=== PATIENT | female | born 1945 | race Caucasian/White ===

== ENCOUNTER → 2018-06-04 09:29 | Outpatient (CLI) | payer OTHER, MEDICARE, SELFPAY | PROVIDERS: PCP Family Medicine; Visit Provider Physician Assistant | DX: L02.91 Cutaneous abscess, unspecified (principal) | CPT/HCPCS: 87070; 87077; 87147; 87186; 87205 ==

== ENCOUNTER 2018-10-25 08:57 | Emergency (ER) | payer OTHER, SELFPAY ==
[2018-10-25] VITALS (11 sets, daily range): BP systolic 91–144; BP diastolic 52–77; PULSE 51–73; RESP 16–21; TEMP 36.8; O2SAT 98–100; BMI 20.5
--- NOTE | 2018-10-25 08:58 | ED.CHESTPAIN ---
HPI - Chest Pain General Chief Complaint: Chest Pain Stated Complaint: chest/shoulder/neck pain Time Seen by Provider: 10/25/18 08:58 Source: patient Mode of arrival: ambulatory Limitations: no limitations History of Present Illness HPI narrative: Patient is otherwise healthy 72-year-old female not on any medications no prior medical history here for evaluation of left-sided chest discomfort that she states has been off and on for the past several weeks. She states that the symptoms she has today for the same symptoms she has been having off and on. She states that the symptoms today have been going on for the past 2 hr. It is a tingling in the left side of her chest and in her left neck and down her left arm. She thinks that it potentially gets worse with movement and palpation but unsure. Feels that it gets better with taking a big deep breath. No skin rashes. Related Data Home Medications Medication Instructions Recorded Confirmed calcium carb-vit [id number] 1 tab PO DAILY 06/04/18 10/25/18 333 mg-200 unit-133 mg-5 mg tablet green tea leaf extract capsule 1 cap PO DAILY cap 06/04/18 10/25/18 melatonin 3 mg tablet 3 mg PO BEDTIME PRN 06/04/18 10/25/18 Co Q-10 (with Vit E) 1 cap PO DAILY 10/25/18 10/25/18 Fish Oil 1 cap PO DAILY 10/25/18 10/25/18 [place] Needle Extrace 1 dose PO DAILY 10/25/18 10/25/18 Shitake Mushroom Extract 1 dose PO DAILY 10/25/18 10/25/18 aspirin 650 mg PO .ONCE PRN 10/25/18 10/25/18 turmeric 1 cap PO DAILY 10/25/18 10/25/18 Allergies Allergy/AdvReac Type Severity Reaction Status Date / Time No Known Drug Allergies Allergy Verified 10/25/18 10:47 Review of Systems Constitutional Denies fever(s) and Denies headache(s) ENT Ears, Nose, Mouth, and Throat: Denies dizziness and Denies headache(s) Cardiovascular Reports chest pain, Denies rapid heart rate, Denies pedal edema, Denies edema, Denies lightheadedness, Reports radiating jaw, neck or arm pain, Denies palpitations and Denies dyspnea Respiratory Denies pain on inspiration, Denies pain with cough and Denies dyspnea Gastrointestinal Gastrointestinal: Denies abdominal pain, Denies nausea and Denies vomiting Genitourinary Denies dysuria Musculoskeletal Denies myalgias and Denies arthralgias Integumentary/Breasts Denies lesions and Denies rash Neurologic Denies dizziness and Denies headache(s) Endocrine Denies palpitations Hematologic/Lymphatic Comments: Not on anticoagulation Allergic/Immunologic Denies urticaria PFSH Medical History Chickenpox (Resolved ~1951) MRSA (methicillin resistant Staphylococcus aureus) (Resolved 05/2018) Measles (Resolved ~1949) Rheumatic fever (Resolved) Surgical History Hx of surgical procedure (Resolved 1983) Family History Father Hypertension Stroke Mother No problems noted. Social History Smoking Status: Never smoker alcohol intake: never Family History Father Hypertension Stroke Mother No problems noted. Social History Smoking Status: Never smoker alcohol intake: never Exam Initial Vital Signs Initial Vital Signs: Vital Signs Temperature 98.3 F 10/25/18 09:00 Pulse Rate 62 10/25/18 09:00 Respiratory Rate 20 10/25/18 09:00 Blood Pressure 144/76 H 10/25/18 09:00 Pulse Oximetry 99 10/25/18 09:00 Const General: cooperative, healthy appearing, comfortable, well developed, well groomed and No acute distress Orientation: alert, awake and oriented x3 HENMT Head: normal to inspection and normocephalic Resp Effort & Inspection: normal respiratory effort Auscultation: clear to auscultation bilaterally Cardio Rate: regular rate Rhythm: regular rhythm Pulses: radial pulses present GI Inspection: non-distended Palpation: soft and No tender Skin Lesions: no lesions Rashes: no rashes Neuro General: alert and oriented x3 Cognition: normal cognition Speech: speech normal Gait: normal gait Motor: muscle tone normal throughout Extrem General: normal to inspection, capillary refill normal and No edema Psych Appearance: grossly normal and well kempt Scores GCS [place] coma scale eye opening: Spontaneous Floyd coma scale verbal response: Orientated Liberty coma scale motor response: Obey commands Floyd coma scale total score: 15 HEART Score Heart Score history: Slightly Suspicious Heart Score EKG: Normal Heart Score Age: > or = 65 years old Heart Score risk factors: No known risk factors Heart Score troponin: < or = to normal limit Heart Score Total: 2 Course Orders Ordered: ED Orders 10/25/18 08:58 XR chest 1V Stat EKG-12 Lead Stat 10/25/18 09:15 Complete Blood Count AUTO DIFF Stat Comprehensive Metabolic Panel Stat Partial Thromboplastin Time Stat Prothrombin Time INR Stat Troponin I Stat 10/25/18 12:30 Troponin I Stat Nitroglycerin (Nitrostat) 0.4 mg SL [id number] PRN PRN Reason: Chest Pain Last Admin: 10/25/18 09:42 Dose: 0.4 mg Admin: 10/25/18 09:27 Dose: 0.4 mg Discontinued Medications Aspirin (Aspirin Chew) 324 mg PO NOW ONE Stop: 10/25/18 09:25 Last Admin: 10/25/18 09:26 Dose: 324 mg Vital Signs - 8 hr 10/25/18 09:00 10/25/18 09:27 10/25/18 09:36 Temperature 98.3 F Pulse Rate 62 63 57 L Respiratory Rate 20 Blood Pressure 144/76 H 125/77 109/57 L Blood Pressure [Left Arm] Pulse Oximetry 99 10/25/18 09:42 10/25/18 09:50 10/25/18 10:44 Temperature Pulse Rate 60 73 51 L Respiratory Rate 19 Blood Pressure 109/57 L 91/76 Blood Pressure [Left Arm] 99/60 Pulse Oximetry 99 10/25/18 11:09 10/25/18 11:56 10/25/18 12:37 Temperature Pulse Rate 56 L 59 L 70 Respiratory Rate 18 17 21 Blood Pressure Blood Pressure [Left Arm] 105/58 L 101/52 L 132/68 Pulse Oximetry 99 99 100 10/25/18 13:24 Temperature Pulse Rate 62 Respiratory Rate 16 Blood Pressure Blood Pressure [Left Arm] 117/56 L Pulse Oximetry 98 MDM - Chest Pain Lab Data Attestation: I reviewed the patient's lab results. Result diagrams: 10/25/18 09:15 10/25/18 09:15 Lab Results 10/25/18 10/25/18 10/25/18 Range/Units 09:15 09:15 09:15 WBC 5.4 (4.5-11.0) X10^3/uL RBC 4.86 (4.0-5.2) X10^6/uL Hgb 14.0 (12.0-16.0) g/dL Hct 41.5 (36-46) % MCV 85.5 (80-100) fL MCH 28.8 (26-34) PG MCHC 33.7 (30-36) % RDW 13.2 (11.6-14.8) % Plt Count 215 (150-400) X10^3/uL Neut % (Auto) 41.6 L (50-75) % Lymph % (Auto) 41.0 H (25-40) % [place] % (Auto) 9.2 (3-14) % Eos % (Auto) 7.0 H (2-4) % Baso % (Auto) 1.2 (0-2) % Neut # (Auto) 2300 (1204-4404) /uL Lymph # (Auto) 2200 (7148-4585) /uL [place] # (Auto) 500 (0-900) /uL Eos # (Auto) 400 (0-450) /uL Baso # (Auto) 100 (0-100) /uL PT 10.7 (10.1-12.7) SECONDS INR 0.9 (0.9-1.3) APTT 29 (26.4-36.2) SECONDS Sodium 139 (137-145) mmol/L Potassium 3.9 (3.4-5.1) mmol/L Chloride 106 (98-107) mmol/L Carbon Dioxide 24 (22-32) mmol/L BUN 11 (7-17) mg/dL Creatinine 0.60 (0.52-1.04) mg/dL Estimated GFR > 60.0 (>60) mL/min BUN/Creatinine Ratio 18.3 (6-22) Glucose 88 (80-110) mg/dL Calcium 9.2 (8.4-10.2) mg/dL Total Bilirubin 0.5 (0.2-1.3) mg/dL AST 26 (14-36) IU/L ALT 33 (9-52) IU/L Alkaline Phosphatase 67 (38-126) U/L Troponin I < 0.012 (0.01-0.034) ng/mL Total Protein 7.0 (6.3-8.2) g/dL Albumin 4.0 (3.5-5.0) g/dL Globulin 3.0 (1.7-4.1) g/dL Albumin/Globulin Ratio 1.3 (1.0-2.8) 10/25/18 Range/Units 12:30 WBC (4.5-11.0) X10^3/uL RBC (4.0-5.2) X10^6/uL Hgb (12.0-16.0) g/dL Hct (36-46) % MCV (80-100) fL MCH (26-34) PG MCHC (30-36) % RDW (11.6-14.8) % Plt Count (150-400) X10^3/uL Neut % (Auto) (50-75) % Lymph % (Auto) (25-40) % [place] % (Auto) (3-14) % Eos % (Auto) (2-4) % Baso % (Auto) (0-2) % Neut # (Auto) (6019-9012) /uL Lymph # (Auto) (6899-2709) /uL [place] # (Auto) (0-900) /uL Eos # (Auto) (0-450) /uL Baso # (Auto) (0-100) /uL PT (10.1-12.7) SECONDS INR (0.9-1.3) APTT (26.4-36.2) SECONDS Sodium (137-145) mmol/L Potassium (3.4-5.1) mmol/L Chloride (98-107) mmol/L Carbon Dioxide (22-32) mmol/L BUN (7-17) mg/dL Creatinine (0.52-1.04) mg/dL Estimated GFR (>60) mL/min BUN/Creatinine Ratio (6-22) Glucose (80-110) mg/dL Calcium (8.4-10.2) mg/dL Total Bilirubin (0.2-1.3) mg/dL AST (14-36) IU/L ALT (9-52) IU/L Alkaline Phosphatase (38-126) U/L Troponin I < 0.012 (0.01-0.034) ng/mL Total Protein (6.3-8.2) g/dL Albumin (3.5-5.0) g/dL Globulin (1.7-4.1) g/dL Albumin/Globulin Ratio (1.0-2.8) Imaging Data Chest x-ray: Radiologist's impression: PROCEDURE: XR CHEST 1V INDICATIONS: chest pain TECHNIQUE: One view of the chest was acquired. COMPARISON: None. FINDINGS: Surgical changes and devices: None. Lungs and pleura: Lungs are clear. No pleural effusions or pneumothorax. Mediastinum: Mediastinal contours appear normal. Heart size is normal. Bones and chest wall: No suspicious bony lesions. Overlying soft tissues appear unremarkable. IMPRESSION: Normal for age, source of current chest pain symptoms is not seen. Dictated by: Weston Villatoro M.D. on 10/25/2018 at 9:42 Approved by: Weston Villatoro M.D. on 10/25/2018 at 9:42 ECG Data Attestation: I personally reviewed and interpreted this ECG as follows: Prior ECG tracings: not available for review Interpretation: Sinus rhythm Ventricular rate is 63 sign normal axis Normal QRS Normal QTC No ST T wave changes MDM Narrative Medical decision making narrative: Patient has a heart score of 2. Did get some relief with the nitroglycerin. Troponins were negative x2. I discussed admitting her for continued provocative testing however the patient did not want to stay overnight. She did agree to stay for the 2nd troponin. Patient was alert and oriented x3 my opinion has capacity to make decisions. Informed her she could return to the emergency department at any time. We also discussed other return precautions. Informed her that she needed to contact her primary doctor for a follow-up. She expressed understanding and agreement with plan. Discharge Plan Departure Patient Disposition: Home Clinical Impression: Chest pain Instructions: DI for Chest Pain Activity Restrictions/Additional Instructions: I do recommend that you contact your primary care doctor for follow-up in to discuss the indications for stress testing. Continue all of your medications. Return to the emergency department at any time for new or worsening symptoms Prescriptions: No Action melatonin 3 mg tablet 3 mg PO BEDTIME PRN (Reason: Sleep) RF: 0 green tea leaf extract [Green Tea] capsule 1 cap PO DAILY RF: 0 calcium carb-D3-mag [phone] kh-qkxf-[id number]-mg tablet 1 tab PO DAILY RF: 0 aspirin 325 mg Tablet 650 mg PO .ONCE PRN (Reason: Chest Pain) RF: 0 Co Q-10 (with Vit E) 1 cap PO DAILY RF: 0 Fish Oil 1 cap PO DAILY RF: 0 Leicester Needle Extrace 1 dose PO DAILY RF: 0 Shitake Mushroom Extract 1 dose PO DAILY RF: 0 turmeric 1 cap PO DAILY RF: 0 Referrals: Malcolm Krueger MD [Primary Care Provider] -
[2018-10-25 09:26] LABS: Add Manual Diff / Slide Review NO; Basophils Absolute Auto 100 /uL (0-100); Basophils Percent Auto 1.2 % (0-2); Eosinophils Absolute Auto 400 /uL (0-450); Hematocrit 41.5 % (36-46); Lymphocytes Absolute Auto 2200 /uL (1100-4500); Mean Corpuscular HGB Conc 33.7 % (30-36); Mean Corpuscular Hemoglobin 28.8 PG (26-34); Mean Corpuscular Volume 85.5 fL (80-100); Monocytes Absolute Auto 500 /uL (0-900); Monocytes Percent Auto 9.2 % (3-14); Neutrophils Absolute Auto 2300 /uL (1500-7000); Neutrophils Percent Auto 41.6 % (50-75); Platelet Count 215 X10^3/uL (150-400); Red Blood Cell Count 4.86 X10^6/uL (4.0-5.2); Red Cell Distribution Width 13.2 % (11.6-14.8); White Blood Cell Count 5.4 X10^3/uL (4.5-11.0)
[2018-10-25] MEDS: ASPIRIN 81 MG TAB 324 MG PO (09:26)
[2018-10-25] MEDS: NITROGLYCERIN 0.4 MG SL TAB SL ×2 (09:27→09:42)
[2018-10-25 09:33] LABS: INR 0.9 (0.9-1.3); Prothrombin Time 10.7 SECONDS (10.1-12.7)
[2018-10-25 09:36] LABS: PTT Partial Thromboplastin Tim 29 SECONDS (26.4-36.2)
--- NOTE | 2018-10-25 09:36 | PC.NURSE ---
Per MD, no further doses of nitro
[2018-10-25 09:39] LABS: Alanine Aminotransferase 33 IU/L (9-52); Albumin Globulin Ratio 1.3 (1.0-2.8); Alkaline Phosphatase 67 U/L (38-126); Aspartate Aminotransferase 26 IU/L (14-36); BUN Creatinine Ratio 18.3 (6-22); Bilirubin Total 0.5 mg/dL (0.2-1.3); Blood Urea Nitrogen 11 mg/dL (7-17); Calcium 9.2 mg/dL (8.4-10.2); Carbon Dioxide 24 mmol/L (22-32); Chloride 106 mmol/L (98-107); Estimated Glomerular Filt Rate > 60.0 mL/min (>60); Glucose 88 mg/dL (80-110); HEMOLYSIS < 15 (0-50); Potassium 3.9 mmol/L (3.4-5.1); Sodium 139 mmol/L (137-145)
[2018-10-25 09:51] LABS: Troponin I < 0.012 ng/mL (0.01-0.034)
[2018-10-25 13:11] LABS: Troponin I < 0.012 ng/mL (0.01-0.034)
== END 2018-10-25 13:42 | disposition home or self-care (01) ==
PROVIDERS: Emergency Provider Emergency Medicine; PCP Family Medicine
DX: R07.89 Other chest pain (principal)
CPT/HCPCS: 36415; 36591; 71045; 80053; 84484; 85025; 85610; 85730; 93005; 93041; 99284; 99285

== ENCOUNTER → 2019-02-08 13:55 | Outpatient (CLI) | payer OTHER, SELFPAY ==
--- NOTE | 2019-02-08 14:49 | PM.TREADMILL ---
Cardiac Stress Test Report Referral & Results Date Patient Seen: 02/08/19 Time Patient Seen: 14:30 Requesting provider: Vanessa Collins Indication: Chest pain Rest ECG: NSR Procedure Note: Today following both written and verbal informed consent, the patient was exercised according to a standard Davin protocol. The patient exercised for a total of 7:05 achieving a maximum heart rate of 155. Patient's maximum systolic blood pressure was 170/70. This was an estimated 10 MET's. No EKG abnormalities. Presenting symptoms were not reproduced on exercise. No angina, paresthesias, or presyncope. MITCH -30% on active scale. Impression: Low probability for ischemia. Please note: Actual ECG tracings can be found in the PACS system.
== END ==
PROVIDERS: PCP Family Medicine; Visit Provider Family Medicine
DX: R07.9 Chest pain, unspecified (principal)
CPT/HCPCS: 93016; 93017; 93018

== ENCOUNTER → 2020-09-17 11:06 | Outpatient (CLI) | payer OTHER, SELFPAY | PROVIDERS: PCP Family Medicine; Visit Provider Student in an Organized Health Care Education/Training Program | DX: N34.3 Urethral syndrome, unspecified (principal) | CPT/HCPCS: 87086 ==

== ENCOUNTER → 2021-10-19 16:37 | Outpatient (CLI) | payer OTHER, SELFPAY ==
--- NOTE | 2021-10-19 16:39 | DI.MG.S_ITS ---
BILATERAL DIGITAL SCREENING MAMMOGRAM 3D/2D WITH CAD: 10/19/2021 CLINICAL: Routine screening. No prior exams were available for comparison. There are scattered fibroglandular elements in both breasts. Current study was also evaluated with a Computer Aided Detection (CAD) system. There is a possible oval equal density focal asymmetry in the left breast at 1 o'clock posterior depth. No other significant masses, calcifications, or other findings are seen in either breast. IMPRESSION: INCOMPLETE: NEEDS ADDITIONAL IMAGING EVALUATION The possible oval equal density focal asymmetry in the left breast resembles fibroglandular tissue and is indeterminate. Additional views with possible ultrasound are recommended. This exam was interpreted at Station ID: [id number]. NOTE: For mammograms, a report in lay terms will be sent to the patient. Approximately 15% of breast malignancies will not be visualized mammographically. In the management of a palpable breast mass, a negative mammogram must not discourage biopsy of a clinically suspicious lesion. Electronically Signed By: Link Porter M.D. at/:10/21/2021 07:49:52 letter sent: Additional Imaging Needed ACR BI-RADS Category 0: Incomplete [id number]
== END ==
PROVIDERS: PCP Family Medicine; Referring Provider Family Medicine; Visit Provider Family Medicine
DX: Z12.31 Encounter for screening mammogram for malignant neoplasm of breast (principal)
CPT/HCPCS: 77063; 77067

== ENCOUNTER → 2024-11-06 09:00 | Outpatient (CLI) | payer OTHER, SELFPAY ==
[2024-11-06 10:12] LABS: Add Manual Diff / Slide Review NO; Basophils Absolute Auto 100 /uL (0-100); Eosinophils Absolute Auto 300 /uL (0-450); Hematocrit 43.8 % (36-46); Hemoglobin 14.4 g/dL (12.0-16.0); Lymphocytes Absolute Auto 1900 /uL (1100-4500); Lymphocytes Percent Auto 34.2 % (25-40); Mean Corpuscular Hemoglobin 28.8 PG (26-34); Mean Corpuscular Volume 87.3 fL (80-100); Monocytes Absolute Auto 500 /uL (0-900); Monocytes Percent Auto 8.2 % (3-14); Neutrophils Absolute Auto 2900 /uL (1500-7000); Neutrophils Percent Auto 50.6 % (50-75); Platelet Count 226 X10^3/uL (150-400); Red Blood Cell Count 5.02 X10^6/uL (4.0-5.2); Red Cell Distribution Width 13.5 % (11.6-14.8); White Blood Cell Count 5.7 X10^3/uL (4.5-11.0)
[2024-11-06 10:34] LABS: Alanine Aminotransferase 24 IU/L (<35); Albumin 4.1 g/dL (3.5-5.0); Albumin Globulin Ratio 1.6 (1.0-2.8); Alkaline Phosphatase 79 U/L (38-126); Aspartate Aminotransferase 29 IU/L (14-36); BUN Creatinine Ratio 23.9 (6-22); Bilirubin Total 0.6 mg/dL (0.2-1.3); Blood Urea Nitrogen 17 mg/dL (7-17); Calcium 9.7 mg/dL (8.4-10.2); Carbon Dioxide 27 mmol/L (22-32); Chloride 106 mmol/L (98-107); Cholesterol 230 mg/dL (140-199); Estimated Glomerular Filt Rate > 60 mL/min (>60); Globulin 2.6 g/dL (1.7-4.1); Glucose 85 mg/dL (80-110); HDL Cholesterol 70 mg/dL (40-60); HEMOLYSIS < 15 (0-50); LDL Cholesterol Calculated 142 mg/dL (<100); Potassium 4.2 mmol/L (3.4-5.1); Sodium 139 mmol/L (137-145); Total Protein 6.7 g/dL (6.3-8.2); Triglycerides 92 mg/dL (35-150)
[2024-11-06 11:04] LABS: TSH w/ Reflex to FT4 2.35 uIU/mL (0.47-4.68)
== END ==
PROVIDERS: PCP Family Medicine; Referring Provider Family Medicine; Visit Provider Family Medicine
DX: R07.89 Other chest pain (principal)
CPT/HCPCS: 36415; 80053; 80061; 84443; 85025

== ENCOUNTER 2025-02-24 06:48 | Emergency (ER) | payer OTHER, SELFPAY ==
[2025-02-24] VITALS (16 sets, daily range): BP systolic 126–163; BP diastolic 59–72; PULSE 60–80; RESP 12–24; TEMP 36.3; O2SAT 96–100; BMI 22.6
--- NOTE | 2025-02-24 06:55 | EKG_ITS ---
[id number] [place] [address] Test Date: 2025-02-24 Pat Name: Rose Dale Department: 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
--- NOTE | 2025-02-24 06:58 | DI.RAD.S_ITS ---
PROCEDURE: XR CHEST 1V INDICATIONS: Chest Pain TECHNIQUE: One view of the chest was acquired. COMPARISON: [facility], CR, XR CHEST 1V, 10/25/2018, 9:05. FINDINGS: Surgical changes and devices: None. Lungs and pleura: Subtle ill-defined airspace opacities in bilateral infrahilar region are seen. No pleural effusions or pneumothorax. Mediastinum: Mediastinal contours appear normal. Heart size is normal. Bones and chest wall: No suspicious bony lesions. Overlying soft tissues appear unremarkable. IMPRESSION: Finding may represent small infiltrate versus atelectasis in bilateral infrahilar region. No pleural effusion or pneumothorax. Clinical correlation and follow-up is recommended. Dictated by: Jorge Telles M.D. on 02/24/2025 at 8:39 Approved by: Jorge Telles M.D. on 02/24/2025 at 8:51
[2025-02-24 07:11] LABS: Add Manual Diff / Slide Review NO; Basophils Absolute Auto 100 /uL (0-100); Basophils Percent Auto 1.5 % (0-2); Eosinophils Absolute Auto 400 /uL (0-450); Eosinophils Percent Auto 5.4 % (2-4); Hematocrit 42.2 % (36-46); Lymphocytes Absolute Auto 2700 /uL (1100-4500); Lymphocytes Percent Auto 39.2 % (25-40); Mean Corpuscular HGB Conc 33.2 % (30-36); Mean Corpuscular Hemoglobin 28.6 PG (26-34); Mean Corpuscular Volume 86.3 fL (80-100); Monocytes Absolute Auto 600 /uL (0-900); Monocytes Percent Auto 8.4 % (3-14); Neutrophils Absolute Auto 3100 /uL (1500-7000); Neutrophils Percent Auto 45.5 % (50-75); Platelet Count 237 X10^3/uL (150-400); Red Blood Cell Count 4.89 X10^6/uL (4.0-5.2); Red Cell Distribution Width 14.3 % (11.6-14.8); White Blood Cell Count 6.8 X10^3/uL (4.5-11.0)
--- NOTE | 2025-02-24 07:14 | ED.CHESTPAIN ---
HPI - Chest Pain General Chief Complaint: Chest Pain Stated Complaint: Chest pain Numbness going down right arm x6 days Time Seen by Provider: 02/24/25 07:04 Source: patient Mode of arrival: Ambulatory Limitations: no limitations History of Present Illness HPI narrative: Patient here for reproducible nocturnal left pectoral chest pain that radiates to her left neck left jaw and down to her left thumb. This is only at nighttime. Not during the daytime. She denies any exertional chest pain dyspnea nausea sweating. Patient had similar visit here October 25, 2018, she does not recall at this visit. Please see HPI notes below. Patient has low heart score. Patient denies any primary family history of coronary disease. Patient denies any history of hypertension hyperlipidemia. Does not smoke. Again, pain is reproducible left pectoral areas very focal and also under the armpit. No pain with rotating head or neck or arm. Chief Complaint: Chest Pain Stated Complaint: chest/shoulder/neck pain Time Seen by Provider: 10/25/18 08:58 Source: patient Mode of arrival: ambulatory Limitations: no limitations History of Present Illness HPI narrative: Patient is otherwise healthy 72-year-old female not on any medications no prior medical history here for evaluation of left-sided chest discomfort that she states has been off and on for the past several weeks. She states that the symptoms she has today for the same symptoms she has been having off and on. She states that the symptoms today have been going on for the past 2 hr. It is a tingling in the left side of her chest and in her left neck and down her left arm. She thinks that it potentially gets worse with movement and palpation but unsure. Feels that it gets better with taking a big deep breath. No skin rashes. Related Data Home Medications ?Medication ?Instructions ?Recorded ?Confirmed green tea leaf extract (Green Tea 1 cap PO DAILY 06/04/18 01/13/25 capsule) aspirin 81 mg capsule 162 mg PO DAILY PRN 11/05/24 01/13/25 coenzyme Q10 [Co Q-10] 1 cap PO 3XW 11/05/24 01/13/25 melatonin 10 mg capsule 10 mg PO BEDTIME PRN 11/05/24 01/13/25 omega 9-xtk-gvd-fish oil 1,000 mg 1 cap PO 3XW 11/05/24 01/13/25 (120 mg-180 mg) capsule (Fish Oil) shiitake Mushroom Extract 1 cap PO DAILY 11/05/24 01/13/25 turmeric 1 cap PO 2XW 11/05/24 01/13/25 Allergies Allergy/AdvReac Type Severity Reaction Status Date / Time No Known Drug Allergies Allergy Verified 02/24/25 06:59 Review of Systems Review of Systems Narrative: GENERAL: Negative chills, fatigue, malaise, fever, sweats. HEENT: Negative sinus pain, ear pain, sore throat RESPIRATORY: Negative dyspnea, cough CARDIOVASCULAR: Positive chest pain, negative palpitations GASTROINTESTINAL: Negative vomiting, nausea, abdominal pain : Negative dysuria, frequency, hematuria MUSCULOSKELETAL: Negative muscle or bony pain SKIN: Negative rash, skin lesions NEUROLOGIC: Negative weakness, numbness ROS Unobtainable: All systems reviewed & are unremarkable except as noted in HPI and below Patient History Medical History (Updated 02/24/25 @ 11:04 by Malcolm Capellan MD) Vision disorder Infertility (~1982) Fibroids (~1982) Endometriosis (~1982) Chest pain (~10/2018) Chickenpox (~1951) MRSA (methicillin resistant Staphylococcus aureus) (05/2018) Measles (~1950) Rheumatic fever Surgical History Anesthesia Hx of surgical procedure (1983) Family History Father Hypertension Stroke Mother Family history of thyroid problem Grandfather History of heart disease Grandmother History of heart disease Grandfather History of heart disease Hypertension Grandmother Cancer Social History marital status: number of children: 3 Smoking Status: Never smoker alcohol intake: never substance use type: does not use Smoking Status: Never smoker Exam Narrative Exam Narrative: GENERAL: in no distress, not toxic not dyspneic HEAD: Normocephalic. EYES: Pupils equal round ENT: Mucous membranes moist. NECK: Trachea midline. There is no reproducible posterior cervical neck tenderness or pain with full active range of motion. No radiating pain to the arm or jaw with neck movement CARDIOVASCULAR: Regular rate and rhythm RESPIRATORY: Clear to auscultation. Breath sounds equal bilaterally. No wheezes, rales, or rhonchi. There is reproducible focal left pectoral supra mammary tenderness, also reproducible axillary tenderness on palpation GASTROINTESTINAL: Abdomen soft, non-tender EXTREMITIES: No gross deformities. BACK: No flank tenderness. NEURO: AOx4. Clear speech SKIN: Warm and dry PSYCH: Not anxious, is cooperative Initial Vital Signs Initial Vital Signs: Vital Signs Pulse Rate 74 02/24/25 06:56 Pulse Oximetry 100 02/24/25 06:56 Scores HEART Score Heart Score history: Slightly Suspicious Heart Score EKG: Non-Specific repolarization disturbance Heart Score Age: > or = 65 years old Heart Score risk factors: No known risk factors Heart Score troponin: < or = to normal limit Heart Score Total: 3 Course Orders Ordered: Discontinued Medications Aspirin (Aspirin 81 Mg Chew Tab) 324 mg PO NOW ONE Stop: 02/24/25 06:59 Last Admin: 02/24/25 08:16 Dose: Not Given Documented By: KASSY Aspirin (Aspirin 81 Mg Chew Tab) 324 mg PO NOW ONE Stop: 02/24/25 10:11 Last Admin: 02/24/25 10:16 Dose: 324 mg Documented By: KASSY Ketorolac Tromethamine (Ketorolac 30 Mg/Ml Vial) 15 mg IV NOW ONE Stop: 02/24/25 07:15 Last Admin: 02/24/25 08:50 Dose: 15 mg Documented By: KASSY Nitroglycerin (Nitroglycerin Oint 1 Inch/Gm Oint...G.) 1 inch TOP NOW ONE Stop: 02/24/25 10:11 Last Admin: 02/24/25 10:16 Dose: 1 inch Documented By: KASSY Vital Signs Vital signs: Vital Signs - 8 hr 02/24/25 06:56 02/24/25 06:59 02/24/25 07:00 Temperature 97.4 F L Pulse Rate 74 67 66 Respiratory Rate 16 Blood Pressure 141/67 H Pulse Oximetry 100 100 98 Oxygen Delivery Method Room Air 02/24/25 07:00 02/24/25 07:30 02/24/25 07:30 Temperature Pulse Rate 65 Respiratory Rate Blood Pressure 141/67 H 140/63 Pulse Oximetry 98 Oxygen Delivery Method 02/24/25 08:00 02/24/25 08:00 02/24/25 08:30 Temperature Pulse Rate 63 62 Respiratory Rate Blood Pressure 128/59 L Pulse Oximetry 98 97 Oxygen Delivery Method 02/24/25 09:00 02/24/25 09:30 02/24/25 10:00 Temperature Pulse Rate 63 68 80 Respiratory Rate 24 20 Blood Pressure Pulse Oximetry 98 99 Oxygen Delivery Method 02/24/25 10:08 02/24/25 10:08 02/24/25 10:16 Temperature Pulse Rate 65 71 Respiratory Rate 12 Blood Pressure 163/72 H 163/72 H Pulse Oximetry 98 Oxygen Delivery Method 02/24/25 10:21 02/24/25 10:21 02/24/25 10:30 Temperature Pulse Rate 66 Respiratory Rate Blood Pressure 140/60 140/65 Pulse Oximetry 98 Oxygen Delivery Method 02/24/25 10:30 02/24/25 10:40 02/24/25 10:40 Temperature Pulse Rate 61 60 Respiratory Rate 15 18 Blood Pressure 126/63 Pulse Oximetry 99 98 Oxygen Delivery Method MDM - Chest Pain Lab Data 02/24/25 07:00 02/24/25 07:00 Labs: Lab Results 02/24/25 02/24/25 Range/Units 07:00 09:25 WBC 6.8 (4.5-11.0) X10^3/uL RBC 4.89 (4.0-5.2) X10^6/uL Hgb 14.0 (12.0-16.0) g/dL Hct 42.2 (36-46) % MCV 86.3 (80-100) fL MCH 28.6 (26-34) PG MCHC 33.2 (30-36) % RDW 14.3 (11.6-14.8) % Plt Count 237 (150-400) X10^3/uL Neut % (Auto) 45.5 L (50-75) % Lymph % (Auto) 39.2 (25-40) % [place] % (Auto) 8.4 (3-14) % Eos % (Auto) 5.4 H (2-4) % Baso % (Auto) 1.5 (0-2) % Neut # (Auto) 3100 (0917-1810) /uL Lymph # (Auto) 2700 (5023-6002) /uL [place] # (Auto) 600 (0-900) /uL Eos # (Auto) 400 (0-450) /uL Baso # (Auto) 100 (0-100) /uL PT 10.5 (9.4-12.5) SECONDS INR 0.9 (0.9-1.3) APTT 33 (25.1-36.5) SECONDS Sodium 139 (137-145) mmol/L Potassium 4.1 (3.4-5.1) mmol/L Chloride 106 (98-107) mmol/L Carbon Dioxide 25 (22-32) mmol/L BUN 12 (7-17) mg/dL Creatinine 0.72 (0.52-1.04) mg/dL Estimated GFR > 60 (>60) mL/min BUN/Creatinine Ratio 16.7 (6-22) Glucose 87 (70-99) mg/dL Calcium 9.6 (8.4-10.2) mg/dL Magnesium 2.0 (1.6-2.3) mg/dL Total Bilirubin 0.6 (0.2-1.3) mg/dL AST 31 (14-36) IU/L ALT 21 (<35) IU/L Alkaline Phosphatase 86 (38-126) U/L Total Creatine Kinase 50 37 (30-135) U/L Troponin I 0.030 0.029 (0.01-0.034) ng/mL NT-Pro-B Natriuret Pep 2620 H (<450) pg/mL Total Protein 7.6 (6.3-8.2) g/dL Albumin 4.3 (3.5-5.0) g/dL Globulin 3.3 (1.7-4.1) g/dL Albumin/Globulin Ratio 1.3 (1.0-2.8) Lipase 96 (23-300) U/L [facility] Narrative Medical decision making narrative: Patient here for reproducible nocturnal left pectoral chest pain that radiates to her left neck left jaw and down to her left thumb. This is only at nighttime. Not during the daytime. She denies any exertional chest pain dyspnea nausea sweating. Patient had similar visit here October 25, 2018, she does not recall at this visit. Please see HPI notes below. Patient has low heart score. Patient denies any primary family history of coronary disease. Patient denies any history of hypertension hyperlipidemia. Does not smoke. Again, pain is reproducible left pectoral areas very focal and also under the armpit. No pain with rotating head or neck or arm. After history and exam, CBC CMP troponin x2 EKG chest x-ray Toradol [facility] Medical records reviewed: October 25, 2018 ER visit for chest pain Differential considered: Includes but not limited to STEMI non-STEMI angina costochondritis pleurisy pulmonary embolism shingles Lab Test results independently reviewed as above. Pertinent findings: WBC 6.8 hemoglobin 14.0 INR 0.9 BUN 12 creatinine 0.72, BNP 2620, 1st troponin 0.03 2nd troponin 0.029 Independently reviewed EKG sinus rhythm rate [address] elevation or depression Imaging studies independently reviewed: Chest x-ray possible atelectasis Consultations: Patient does not want to be admitted Re-evaluations: 11:01 a.m.. Patient is chest pain-free. Nitro paste and aspirin was given. Patient resting comfortably. Blood pressure has improved. 126/63 heart rate 60. I did review with patient this is atypical chest pain with portion of her exam being reproducible but relief with nitro paste. I did review with her for admission however she has declined admission. Spoke with her that today's results does not exclude coronary disease and she does understand this. She does not want to be admitted or proceed with stress test here on this admission. She does have a family doctor she wants to follow up with. Risk of leaving against medical advice include but not limited to heart attack permanent injury loss of limb or tissue or organ. She desires discharge home. She is awake alert oriented x4. And is decisional Discussion: Patient has decided to leave against medical advice. Diagnosis: Atypical chest pain Discharge Plan Departure Patient Disposition: Left Against Medical Advice Clinical Impression: Atypical chest pain Instructions: Refusal of Consent to Treatment (Against Medical Advice) Activity Restrictions/Additional Instructions: You have declined admission to the hospital for cardiac monitoring and stress test. Return immediately if you change your mind. You do need echocardiogram and stress test Prescriptions: No Action green tea leaf extract [Green Tea] capsule 1 cap PO DAILY aspirin 81 mg capsule 162 mg PO DAILY PRN coenzyme Q10 [Co Q-10] 1 cap PO 3XW omega 9-iss-bcm-fish oil [Fish Oil] 1,000 (120-180) mg capsule 1 cap PO 3XW melatonin 10 mg capsule 10 mg PO BEDTIME PRN shiitake Mushroom Extract 1 cap PO DAILY turmeric 1 cap PO 2XW Referrals: Lacey Franks, [Primary Care Provider, Family Practice] Stand Alone Forms: Patient Portal/API, Against Med. Advice (Pakistani)
[2025-02-24 07:19] LABS: INR 0.9 (0.9-1.3); Prothrombin Time 10.5 SECONDS (9.4-12.5)
[2025-02-24 07:21] LABS: PTT Partial Thromboplastin Tim 33 SECONDS (25.1-36.5)
[2025-02-24 07:22] LABS: Alanine Aminotransferase 21 IU/L (<35); Albumin 4.3 g/dL (3.5-5.0); Albumin Globulin Ratio 1.3 (1.0-2.8); Alkaline Phosphatase 86 U/L (38-126); Aspartate Aminotransferase 31 IU/L (14-36); BUN Creatinine Ratio 16.7 (6-22); Bilirubin Total 0.6 mg/dL (0.2-1.3); Blood Urea Nitrogen 12 mg/dL (7-17); Calcium 9.6 mg/dL (8.4-10.2); Carbon Dioxide 25 mmol/L (22-32); Chloride 106 mmol/L (98-107); Creatine Kinase 50 U/L (30-135); Estimated Glomerular Filt Rate > 60 mL/min (>60); Globulin 3.3 g/dL (1.7-4.1); Glucose 87 mg/dL (70-99); HEMOLYSIS < 15 (0-50); Lipase 96 U/L (23-300); Potassium 4.1 mmol/L (3.4-5.1); Sodium 139 mmol/L (137-145); Total Protein 7.6 g/dL (6.3-8.2)
[2025-02-24 07:34] LABS: NT-proBNP (BNP-Adult 18+) 2620 pg/mL (<450)
[2025-02-24] MEDS: KETOROLAC 30 MG/ML VIAL 15 MG IV (08:50)
[2025-02-24 09:43] LABS: Creatine Kinase 37 U/L (30-135)
--- NOTE | 2025-02-24 09:48 | EKG_ITS ---
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
[2025-02-24 09:56] LABS: Troponin I 0.029 ng/mL (0.01-0.034)
[2025-02-24] MEDS: ASPIRIN 81 MG CHEW TAB 324 MG PO (10:16)
[2025-02-24] MEDS: NITROGLYCERIN OINT 1 INCH/GM OINT...G. TOP (10:16)
== END 2025-02-24 11:13 | disposition left against medical advice (07) ==
PROVIDERS: Emergency Medicine; Emergency Provider Emergency Medicine; PCP Family Medicine
DX: R07.89 Other chest pain (principal); M54.2 Cervicalgia
CPT/HCPCS: 36415; 71045; 80053; 82550; 83690; 83735; 83880; 84484; 85025; 85610; 85730; 93005; 96360; 99284; J1885

== ENCOUNTER 2025-03-03 19:58 | Emergency (ER) | payer OTHER, SELFPAY ==
[2025-03-03 20:01] VITALS: BP 175/81; PULSE 75; RESP 18; TEMP 36.4; O2SAT 99; BMI 22.6
--- NOTE | 2025-03-03 20:06 | DI.RAD.S_ITS ---
PROCEDURE: XR CHEST 1V INDICATIONS: Chest Pain TECHNIQUE: One view of the chest was acquired. COMPARISON: [facility], CR, XR CHEST 1V, 02/24/2025, 7:26. FINDINGS: Surgical changes and devices: None. Lungs and pleura: Lungs are clear. No pleural effusions or pneumothorax. Mediastinum: Mediastinal contours appear normal. Heart size is normal. Bones and chest wall: No suspicious bony lesions. Overlying soft tissues appear unremarkable. IMPRESSION: No acute cardiopulmonary abnormalities or focal consolidation. Dictated by: Link Porter M.D. on 03/03/2025 at 21:55 Approved by: Link Porter M.D. on 03/03/2025 at 21:55
--- NOTE | 2025-03-03 20:06 | EKG_ITS ---
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
--- NOTE | 2025-03-03 20:27 | ED.CHESTPAIN ---
HPI - Chest Pain General Chief Complaint: Chest Pain Stated Complaint: Chest Pain, SOB, Arm Pain Time Seen by Provider: 03/03/25 20:27 Source: patient Mode of arrival: Ambulatory History of Present Illness HPI narrative: 79-year-old woman presents complaining of left-sided chest pain left arm pain radiating up into her neck, associated with nausea. She was seen here on February 24 with similar findings felt to be atypical chest pain with hospitalization suggested but she declined. She has not had any additional follow up since then. Stated that she had not had pain from that episode until 7:00 p.m. tonvenu. She drove herself to our emergency department and was complaining of severe chest pain that she described as reproducible with palpation along the anterior left chest wall. No recent fever, cough, chills, palpitations, lower extremity edema, vomiting, diarrhea, headaches, acute neurologic changes Related Data Home Medications ?Medication ?Instructions ?Recorded ?Confirmed green tea leaf extract (Green Tea 1 cap PO DAILY 06/04/18 01/13/25 capsule) aspirin 81 mg capsule 162 mg PO DAILY PRN 11/05/24 01/13/25 coenzyme Q10 [Co Q-10] 1 cap PO 3XW 11/05/24 01/13/25 melatonin 10 mg capsule 10 mg PO BEDTIME PRN 11/05/24 01/13/25 omega 3-unb-pbc-fish oil 1,000 mg 1 cap PO 3XW 11/05/24 01/13/25 (120 mg-180 mg) capsule (Fish Oil) shiitake Mushroom Extract 1 cap PO DAILY 11/05/24 01/13/25 turmeric 1 cap PO 2XW 11/05/24 01/13/25 Allergies Allergy/AdvReac Type Severity Reaction Status Date / Time No Known Drug Allergies Allergy Verified 03/03/25 20:00 Review of Systems Review of Systems Narrative: Pertinent positive and negative findings as per HPI Patient History Medical History (Updated 03/04/25 @ 01:44 by Louise Oneill MD) Vision disorder Infertility (~1982) Fibroids (~1982) Endometriosis (~1982) Chest pain (~10/2018) Chickenpox (~1951) MRSA (methicillin resistant Staphylococcus aureus) (05/2018) Measles (~1949) Rheumatic fever Surgical History Anesthesia Hx of surgical procedure (1983) Family History Father Hypertension Stroke Mother Family history of thyroid problem Grandfather History of heart disease Grandmother History of heart disease Grandfather History of heart disease Hypertension Grandmother Cancer Social History marital status: number of children: 3 alcohol intake: never substance use type: does not use Exam Initial Vital Signs Initial Vital Signs: Vital Signs Temperature 97.5 F L 03/03/25 20:01 Pulse Rate 75 03/03/25 20:01 Respiratory Rate 18 03/03/25 20:01 Blood Pressure 175/81 H 03/03/25 20:01 Pulse Oximetry 99 03/03/25 20:01 Oxygen Delivery Method Room Air 03/03/25 20:01 General: Appears slightly pale, acutely uncomfortable complaining of severe left arm pain but Able to give a complete and coherent history. HEENT: Moist mucous membranes, normal sclera with reactive pupils, Respiratory: Lungs are clear to auscultation, no wheezing no rales no rhonchi. Full and symmetrical air movement Cardiac: Regular rate and rhythm no murmurs no bruits Abdomen: Soft, nontender, no rebound or guarding, no flank pain Skin: Pale but not diaphoretic Neurologic: Grossly neurologically intact with no obvious asymmetries or abnormalities Extremities: No trauma, well perfused, no lower extremity edema Psych: Cooperative, appropriate insight and affect Course Orders Ordered: ED Orders 03/03/25 23:58 Trop I [Troponin I] Stat 03/04/25 01:05 EKG-12 Lead Stat Discontinued Medications Aspirin (Aspirin 81 Mg Chew Tab) 324 mg PO NOW ONE Stop: 03/03/25 20:06 Last Admin: 03/04/25 01:16 Dose: Not Given Documented By: KRISTINE Heparin Sodium (Porcine) (Heparin 5,000 Unit/Ml Vial) 3,500 unit 60 unit/kg (3500 unit) IV NOW ONE Stop: 03/04/25 01:23 Last Admin: 03/04/25 01:32 Dose: 3,500 unit Documented By: KRISTINE Heparin Sodium/Dextrose (Heparin Drip) 25,000 unit in 500 mls @ 13.934 mls/hr IV CONT TORITO; Protocol Last Titration: 03/04/25 05:09 Dose: Infused Documented By: KRISTINE Co-signed By: DICKSON Admin: 03/04/25 01:33 Dose: 12 units/kg/hr, 13.934 mls/hr Documented By: KRISTINE Co-signed By: JODIE Nitroglycerin (Nitroglycerin) 50 mg in 250 mls @ 1.5 mls/hr IV TITRATE TORITO; Protocol Last Titration: 03/04/25 01:55 Dose: Infused Documented By: Admin: 03/04/25 01:34 Dose: 5 mcg/min, 1.5 mls/hr Documented By: KRISTINE Morphine Sulfate (Morphine 2 Mg/Ml Inj) 2 mg IV NOW ONE Stop: 03/04/25 01:12 Last Admin: 03/04/25 01:20 Dose: 2 mg Documented By: KRISTINE Morphine Sulfate (Morphine 4 Mg/Ml Inj) 4 mg IV NOW ONE Stop: 03/04/25 01:43 Last Admin: 03/04/25 01:44 Dose: 4 mg Documented By: KRISTINE Nitroglycerin (Nitroglycerin 0.4 Mg Sl Tab) 0.4 mg SL [id number] PRN PRN Reason: Chest Pain Last Admin: 03/04/25 01:24 Dose: 0.4 mg Documented By: Admin: 03/04/25 01:17 Dose: 0.4 mg Documented By: KRISTINE Ondansetron HCl (Ondansetron 4 Mg/2 Ml Inj) 4 mg IV NOW ONE Stop: 03/04/25 01:11 Last Admin: 03/04/25 01:17 Dose: 4 mg Documented By: KRISTINE Vital Signs Vital signs: Vital Signs - 8 hr 03/04/25 01:17 03/04/25 01:23 03/04/25 01:23 Pulse Rate 88 85 Respiratory Rate 18 Blood Pressure 149/79 H 140/69 Pulse Oximetry 96 03/04/25 01:24 03/04/25 01:25 03/04/25 01:25 Pulse Rate 86 86 Respiratory Rate 16 Blood Pressure 140/69 129/63 Pulse Oximetry 96 03/04/25 01:34 03/04/25 01:40 Pulse Rate 77 82 Respiratory Rate 17 Blood Pressure 110/57 L 118/59 L Pulse Oximetry MDM - Chest Pain Lab Data 03/03/25 20:20 03/03/25 20:20 Labs: Lab Results 03/03/25 03/04/25 Range/Units 20:20 00:20 WBC 10.6 (4.5-11.0) X10^3/uL RBC 4.88 (4.0-5.2) X10^6/uL Hgb 14.2 (12.0-16.0) g/dL Hct 41.8 (36-46) % MCV 85.6 (80-100) fL MCH 29.0 (26-34) PG MCHC 33.9 (30-36) % RDW 14.4 (11.6-14.8) % Plt Count 270 (150-400) X10^3/uL Neut % (Auto) 48.2 L (50-75) % Lymph % (Auto) 38.6 (25-40) % [place] % (Auto) 7.9 (3-14) % Eos % (Auto) 4.1 H (2-4) % Baso % (Auto) 1.2 (0-2) % Neut # (Auto) 5100 (8357-2717) /uL Lymph # (Auto) 4100 (6680-6215) /uL [place] # (Auto) 800 (0-900) /uL Eos # (Auto) 400 (0-450) /uL Baso # (Auto) 100 (0-100) /uL PT 10.6 (9.4-12.5) SECONDS INR 0.9 (0.9-1.3) APTT 33 (25.1-36.5) SECONDS Sodium 138 (137-145) mmol/L Potassium 4.4 (3.4-5.1) mmol/L Chloride 104 (98-107) mmol/L Carbon Dioxide 25 (22-32) mmol/L BUN 17 (7-17) mg/dL Creatinine 0.72 (0.52-1.04) mg/dL Estimated GFR > 60 (>60) mL/min BUN/Creatinine Ratio 23.6 H (6-22) Glucose 104 H (70-99) mg/dL Calcium 9.7 (8.4-10.2) mg/dL Magnesium 2.1 (1.6-2.3) mg/dL Total Bilirubin 0.6 (0.2-1.3) mg/dL AST 38 H (14-36) IU/L ALT 26 (<35) IU/L Alkaline Phosphatase 87 (38-126) U/L Total Creatine Kinase 49 (30-135) U/L Troponin I < 0.012 0.062 H (0.01-0.034) ng/mL NT-Pro-B Natriuret Pep 1380 H (<450) pg/mL Total Protein 8.0 (6.3-8.2) g/dL Albumin 4.7 (3.5-5.0) g/dL Globulin 3.3 (1.7-4.1) g/dL Albumin/Globulin Ratio 1.4 (1.0-2.8) Lipase 157 D (23-300) U/L Imaging Data Chest x-ray: Radiologist's Impression: PROCEDURE: XR CHEST 1V INDICATIONS: Chest Pain TECHNIQUE: One view of the chest was acquired. COMPARISON: [facility], , XR CHEST 1V, 02/24/2025, 7:26. FINDINGS: Surgical changes and devices: None. Lungs and pleura: Lungs are clear. No pleural effusions or pneumothorax. Mediastinum: Mediastinal contours appear normal. Heart size is normal. Bones and chest wall: No suspicious bony lesions. Overlying soft tissues appear unremarkable. IMPRESSION: No acute cardiopulmonary abnormalities or focal consolidation. Dictated by: Link Porter M.D. on 03/03/2025 at 21:55 MDM Narrative Medical decision making narrative: 79-year-old woman presents with the acute left-sided chest pain left arm pain starting at approximately 7:00 p.m. tonight. She drove herself to the emergency department. Seen on February 21 with similar complaints and negative workup. Initially complaining that the pain was reproducible with palpation, workup was started from triage and Toradol administered. Initial EKG shows sinus rhythm at a rate of 70. No obvious ischemia, perhaps some mild elevation in V2 but not in contiguous leads. Second troponin returned and was positive. Patient was brought back to the main portion of the emergency department and EKG was repeated, now showing anterior ST elevation with reciprocal inferior changes consistent with acute STEMI. Labs: CBC is unremarkable Chemistries are reassuring Initial troponin is undetectable at 0.012, repeat is positive at 0.062 1:[address] elevation in leads 2 and [address] depressions in leads 3 and AVF. She also has elevations in aVL. All of this is consistent with the acute STEMI 1:25am Discussed with Sim White. 911 called for emergent transfer Patient was given nitroglycerin, morphine for pain control, aspirin, heparin is started, nitro drip is started. She continues to complain of 10/10 pain mostly down her arm Concerns, plans and workup are reviewed with the patient. She understands need for urgent transfer and probable emergent heart catheterization 140am patient has had 2 sublingual nitro, 2 mg of morphine still having 7/10 pain. Nitro drip is started, heparin drip is started, she has been given aspirin. Medics were here for transport Critical Care Time Critical Care Time Critical Care Time: Yes Total Critical Care Time: 34 Attestation: Critical care time is separate from other billable procedures. There is a high probability of a significant, sudden or life-threatening deterioration that requires my full and direct attention, intervention and personal management. This critical care time includes consultation with family and other consulting doctors, review of records, and interpretation of data from labs, EKGs and imaging as well as managements of acute STEMI Discharge Plan Departure Patient Disposition: [facility] Clinical Impression: ST elevation (STEMI) myocardial infarction Qualifiers: Involved coronary artery: unspecified coronary artery Qualified Code(s): I21.3 - ST elevation (STEMI) myocardial infarction of unspecified site Prescriptions: No Action green tea leaf extract [Green Tea] capsule 1 cap PO DAILY aspirin 81 mg capsule 162 mg PO DAILY PRN coenzyme Q10 [Co Q-10] 1 cap PO 3XW omega 6-jvx-hqp-fish oil [Fish Oil] 1,000 (120-180) mg capsule 1 cap PO 3XW melatonin 10 mg capsule 10 mg PO BEDTIME PRN shiitake Mushroom Extract 1 cap PO DAILY turmeric 1 cap PO 2XW Referrals: Lacey Franks DO [Primary Care Provider, Family Practice]
[2025-03-03 20:36] LABS: INR 0.9 (0.9-1.3); Prothrombin Time 10.6 SECONDS (9.4-12.5)
[2025-03-03 20:39] LABS: PTT Partial Thromboplastin Tim 33 SECONDS (25.1-36.5)
[2025-03-03 20:42] LABS: Add Manual Diff / Slide Review NO; Basophils Absolute Auto 100 /uL (0-100); Basophils Percent Auto 1.2 % (0-2); Eosinophils Absolute Auto 400 /uL (0-450); Eosinophils Percent Auto 4.1 % (2-4); Hematocrit 41.8 % (36-46); Hemoglobin 14.2 g/dL (12.0-16.0); Lymphocytes Absolute Auto 4100 /uL (1100-4500); Lymphocytes Percent Auto 38.6 % (25-40); Mean Corpuscular HGB Conc 33.9 % (30-36); Mean Corpuscular Volume 85.6 fL (80-100); Monocytes Absolute Auto 800 /uL (0-900); Monocytes Percent Auto 7.9 % (3-14); Neutrophils Absolute Auto 5100 /uL (1500-7000); Neutrophils Percent Auto 48.2 % (50-75); Platelet Count 270 X10^3/uL (150-400); Red Blood Cell Count 4.88 X10^6/uL (4.0-5.2); Red Cell Distribution Width 14.4 % (11.6-14.8); White Blood Cell Count 10.6 X10^3/uL (4.5-11.0)
[2025-03-03 20:43] LABS: Alanine Aminotransferase 26 IU/L (<35); Albumin 4.7 g/dL (3.5-5.0); Albumin Globulin Ratio 1.4 (1.0-2.8); Alkaline Phosphatase 87 U/L (38-126); Aspartate Aminotransferase 38 IU/L (14-36); BUN Creatinine Ratio 23.6 (6-22); Bilirubin Total 0.6 mg/dL (0.2-1.3); Blood Urea Nitrogen 17 mg/dL (7-17); Calcium 9.7 mg/dL (8.4-10.2); Carbon Dioxide 25 mmol/L (22-32); Chloride 104 mmol/L (98-107); Creatine Kinase 49 U/L (30-135); Estimated Glomerular Filt Rate > 60 mL/min (>60); Globulin 3.3 g/dL (1.7-4.1); Glucose 104 mg/dL (70-99); HEMOLYSIS 47 (0-50); Lipase 157 U/L (23-300); Magnesium 2.1 mg/dL (1.6-2.3); Potassium 4.4 mmol/L (3.4-5.1); Sodium 138 mmol/L (137-145)
[2025-03-03 20:54] LABS: NT-proBNP (BNP-Adult 18+) 1380 pg/mL (<450); Troponin I < 0.012 ng/mL (0.01-0.034)
[2025-03-03 21:50] VITALS: BP 165/98; PULSE 77; RESP 17; TEMP 36.7; O2SAT 96
[2025-03-04 00:49] LABS: Troponin I 0.062 ng/mL (0.01-0.034)
--- NOTE | 2025-03-04 01:11 | EKG_ITS ---
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
[2025-03-04 01:17] VITALS: BP 149/79; PULSE 88
[2025-03-04] MEDS: ONDANSETRON 4 MG/2 ML INJ IV (01:17)
[2025-03-04] MEDS: NITROGLYCERIN 0.4 MG SL TAB SL ×2 (01:17→01:24)
[2025-03-04] MEDS: MORPHINE 2 MG/ML INJ IV (01:20)
[2025-03-04 01:23] VITALS: BP 140/69; PULSE 85; RESP 18; O2SAT 96
[2025-03-04 01:24] VITALS: BP 140/69; PULSE 86
[2025-03-04 01:25] VITALS: BP 129/63; PULSE 86; RESP 16; O2SAT 96
[2025-03-04] MEDS: HEPARIN 5,000 UNIT/ML VIAL 3500 UNIT IV (01:32)
[2025-03-04] MEDS: HEPARIN DRIP 25,000 UNIT/500 ML IV.SOLN 13.934 UNIT IV (01:33)
[2025-03-04 01:34] VITALS: BP 110/57; PULSE 77
[2025-03-04] MEDS: NITROGLYCERIN 50 MG/250 ML INFUS..BTL IV (01:34)
[2025-03-04 01:40] VITALS: BP 118/59; PULSE 82; RESP 17
[2025-03-04] MEDS: MORPHINE 4 MG/ML INJ IV (01:44)
--- NOTE | 2025-03-04 01:47 | PC.NURSE ---
Report given/care transferred to Elliott Baptiste patient scheduling manager for transport to [facility]
--- NOTE | 2025-03-04 01:54 | PC.NURSE ---
Report called to Prachi REHMAN at [facility] ED
--- NOTE | 2025-03-04 03:59 | PC.NURSE ---
0115 Repeat trop noted to be elevated; pt roomed and repeat [address] Oneill notified; called to bedside.
--- NOTE | 2025-03-04 05:11 | PC.NURSE ---
LATE ENTRY Pt was transferred to [facility] with heparin and nitro drips infusing.
== END 2025-03-04 01:55 | disposition short-term general hospital (02) ==
PROVIDERS: Emergency Provider Emergency Medicine; PCP Family Medicine
DX: I21.3 ST elevation (STEMI) myocardial infarction of unspecified site (principal); R07.9 Chest pain, unspecified; M54.2 Cervicalgia; R11.0 Nausea
CPT/HCPCS: 36415; 71045; 80053; 82550; 83690; 83735; 83880; 84484; 85025; 85610; 85730; 93005; 93010; 96365; 96366; 96368; 96375; 96376; 99284; 99291; J1644; J2270; J2405

== ENCOUNTER → 2025-03-18 10:25 | Outpatient (CLI) | payer OTHER, SELFPAY ==
[2025-03-18 12:18] LABS: Add Manual Diff / Slide Review NO; Hematocrit 37.5 % (36-46); Hemoglobin 12.5 g/dL (12.0-16.0); Lymphocytes Absolute Auto 1600 /uL (1100-4500); Mean Corpuscular HGB Conc 33.3 % (30-36); Mean Corpuscular Hemoglobin 28.8 PG (26-34); Mean Corpuscular Volume 86.4 fL (80-100); Platelet Count 233 X10^3/uL (150-400)
[2025-03-18 15:42] LABS: Alanine Aminotransferase 21 IU/L (<35); Albumin 4.0 g/dL (3.5-5.0); Albumin Globulin Ratio 1.5 (1.0-2.8); Alkaline Phosphatase 89 U/L (38-126); Blood Urea Nitrogen 15 mg/dL (7-17); Calcium 9.7 mg/dL (8.4-10.2); Carbon Dioxide 25 mmol/L (22-32); Chloride 101 mmol/L (98-107); Estimated Glomerular Filt Rate > 60 mL/min (>60); Globulin 2.7 g/dL (1.7-4.1); Glucose 83 mg/dL (70-99); HEMOLYSIS < 15 (0-50); Potassium 4.5 mmol/L (3.4-5.1); Sodium 136 mmol/L (137-145); Total Protein 6.7 g/dL (6.3-8.2)
== END ==
PROVIDERS: PCP Family Medicine; Referring Provider Family Medicine; Visit Provider Family Medicine
DX: I42.9 Cardiomyopathy, unspecified (principal); I25.2 Old myocardial infarction
CPT/HCPCS: 36415; 80053; 85025

== ENCOUNTER → 2025-07-10 10:16 | Outpatient (CLI) | payer OTHER, SELFPAY | LOC: ECHO 10:17 | PROVIDERS: PCP Family Medicine; Referring Provider Internal Medicine Cardiovascular Disease; Visit Provider Internal Medicine Cardiovascular Disease | DX: I08.0 Rheumatic disorders of both mitral and aortic valves (principal); I25.5 Ischemic cardiomyopathy | CPT/HCPCS: 93306 ==